=== PATIENT | male | born 1970 | race Two or more races ===

== ENCOUNTER 2017-06-03 01:37 | Emergency (ER) | payer OTHER ==
[~2017-06-03] VITALS: Ht 182.9 cm; Wt 97.5 kg
--- NOTE | ~2017-06-03 | CT4 ---
[facility] A Service of [facility] RADIOLOGY TEXT RESULTS PATIENT: NICOLE THEODORE LOCATION: SED : 68 UNIT #: [id number] AGE: [address]: Kelvin Aquino MD SEX: M ORDER DR: [id number] [place] [id number] E MR#: [id number] Acc #: [id number] NAME: NICOLE THEODORE : 1970 SEX: M STUDY DATE/TIME: 06/03/2017 2:35 UNIT: SED ROOM: STUDY DESCRIPTION: CT Abd and Pelv Wo Cont Attending Physician: Kelvin Aquino M.D. Ordering Physician: Kelvin Aquino M.D. MEDICAL IMAGING REPORT This report is preliminary unless electronic signature is present. EXAM CT abdomen and pelvis without contrast INDICATIONS Left flank pain for the past [address] of the abdomen and pelvis. This CT exam was performed with one or more of the following radiation dose reduction techniques: automatic exposure control, adjustment of mA and/or kV according to patient size, and iterative reconstruction. COMPARISON None. FINDINGS ABDOMEN WITHOUT CONTRAST: Included lung bases are clear. Liver, spleen, adrenal glands, pancreas, gallbladder unremarkable. Small hiatal hernia. Bowel loops non-dilated. Appendix is normal. Small non-obstructing calculus in the lower pole of the left kidney. There is stranding along the [id number] left kidney and proximal left ureter. No radiodense ureteral calculus or hydronephrosis. PELVIS WITHOUT CONTRAST: 3 mm calculus in the bladder. No aggressive appearing bone lesion. IMPRESSION 1. 3 mm calculus in the bladder. Stranding around the left kidney and proximal ureters suggesting that it is a recently passed stone. 2. Tiny non-obstructing calculus in the left kidney. [facility] A Service [facility] RADIOLOGY TEXT RESULTS PATIENT: NICOLE THEODORE LOCATION: SED : 68 UNIT #: [id number] AGE: [address]: Kelvin Aquino MD SEX: M ORDER DR: Dictated by... Clive Loya M.D. THIS IS AN ELECTRONICALLY VERIFIED REPORT Clive Loya M.D. at 06/03/2017 9:55 PM EED/pcl TD: 06/03/2017 08:34 JOB #: [id number] MEDICAL IMAGING REPORT Page 1 of 1
[2017-06-03] MEDS ORDERED: HYDROCODON-ACE1 EAC7 PO (01:48)
[2017-06-03] MEDS ORDERED: MUSCLE RELAXER (01:49)
[2017-06-03 02:27] LABS: BASOPHIL# 0.1 X10e3 (0-0.3); BASOPHIL% 0.7 % (0-2.5); EOSINOPHIL# 0.1 X10e3 (0-0.7); EOSINOPHIL% 1.8 % (0.0-7.0); HEMATOCRIT 41.5 % (38.0-50.0); HEMOGLOBIN 14.2 gm/dL (13.0-16.0); LYMPHOCYTE# 2.5 X10e3 (1.0-3.5); LYMPHOCYTE% 32.4 % (17.0-45.0); MEAN CELL VOLUME 86.9 FL (83-96); MEAN CORPUSCULAR HEMOGLOBIN 29.8 PG (28-34); MEAN CORPUSCULAR HGB CONC 34.3 g/dL (30-36); MEAN PLATELET VOLUME 7.4 FL (6.5-11.5); MONOCYTE# 0.7 X10e3 (0-1.0); MONOCYTE% 8.8 % (3.0-12.0); NEUTROPHIL# 4.3 X10e3 (1.5-7.1); NEUTROPHIL% 56.3 % (40-75); PLATELET COUNT 253 X10e3 (140-420); RED BLOOD COUNT 4.78 X10e (3.90-5.60); WHITE BLOOD COUNT 7.6 X10e3 (4.0-10.5)
[2017-06-03 02:28] LABS: DIFF IND NO
[2017-06-03 02:35] LABS: URINE SOURCE CLEAN CATCH
[2017-06-03 02:37] LABS: URINE APPEARANCE CLEAR; URINE BILIRUBIN NEG (NEG); URINE BLOOD TRACE-INTACT (NEG); URINE COLOR YELLOW; URINE GLUCOSE NEG (NORM); URINE KETONE TRACE (NEG); URINE LEUKOCYTE ESTERASE NEG (NEG); URINE NITRATE NEG (NEG); URINE PROTEIN NEG (NEG); URINE SPECIFIC GRAVITY >=1.030 (1.003-1.035); URINE UROBILINOGEN 0.2 MG/DL (NORM)
[2017-06-03 02:43] LABS: CULTURE INDICATED? NO; MICRO INDICATED? YES; URINE BACTERIA NEG (NEG); URINE SQUAMOUS EPITHELIAL CELL OCCAS /[HPF]; URINE WBC 0-2 /[HPF] (0-5)
[2017-06-03 02:44] LABS: BUN/CREATININE RATIO 28.18; CALCIUM SERUM 8.9 mg/dL (8.4-10.2); CREATININE SERUM 1.1 mg/dL (0.6-1.4); GLOM FILT RATE Estimated 79.5 mL/min (>60); POTASSIUM 3.7 mmol/L (3.5-5.1)
== END 2017-06-03 03:31 | disposition home or self-care (01) ==
LOC: SED 01:37
PROVIDERS: Emergency Medicine
DX: N20.1 Calculus of ureter (principal); Z79.899 Other long term (current) drug therapy
CPT/HCPCS: 36415; 74176; 80048; 81003; 85025; 96361; 96374; 96375; 99284; J1885; J2270; J2405; J2550